=== PATIENT | male | born 1960 | race Caucasian/White ===

== ENCOUNTER 2025-02-04 17:35 | Emergency (ER) | payer OTHER ==
[~2025-02-04] VITALS: Ht 190.5 cm; Wt 104.0 kg
[2025-02-04] MEDS ORDERED: PRILOSEC OTC20 MG PO (17:48)
[2025-02-04] MEDS ORDERED: FLOMAX0.4 MG PO (17:48)
[2025-02-04] MEDS ORDERED: IBLOOD GLUCOSE TEST STRIP 1 EA TEST XX ONE (18:00)
[2025-02-04 18:03] LABS: BASOPHILS 0.6 % (0.2-1.2); EOSINOPHILS 1.5 % (0.8-7.0); LYMPHOCYTES 33.2 % (21.8-53.1); MCH 30.8 PG (25.7-32.2); MCHC 34.5 g/dL (32.3-36.5); MCV 89.2 fL (79.0-92.2); MONOCYTES 9.1 % (5.3-12.2); NEUTROPHILS 55.4 % (34.0-67.9); RBC 4.64 M/uL (4.63-6.08)
[2025-02-04 18:19] LABS: ALT (SGPT) 24.0 U/L (14-59); AST (SGOT) 20.0 U/L (15-37); GLOMERULAR FILTRATION RATE,EST 68.0 mL/min (>60); PROTEIN, TOTAL 6.6 g/dL (6.4-8.2); UREA NITROGEN 15.0 mg/dL (7-18)
--- NOTE | 2025-02-04 18:52 | EKG ---
[facility] [address] [facility] [place], [place] [address] Signed Sinus rhythm with 1st degree AV block Possible Inferior infarct , age undetermined Abnormal ECG No previous ECGs available Confirmed by Jagjit Teixeira DO ([id number]) on 02/04/2025 6:51:59 PM Electronically Signed By: JAGJIT TEIXEIRA DO 02/04/251851 PATIENT NAME: DANGJIN Electrocardiogram DATE OF : 60 PHYSICIAN: JAGJIT TEIXEIRA DO REPORT #: [id number] REPORT IS CONFIDENTIAL AND NOT TO BE RELEASED WITHOUT AUTHORIZATION
[2025-02-04 20:39] VITALS: BP 141/98
== END 2025-02-04 20:40 | disposition home or self-care (01) ==
LOC: ED 17:35
PROVIDERS: Emergency Medicine
DX: R55 Syncope and collapse (principal); Z79.899 Other long term (current) drug therapy
CPT/HCPCS: 36415; 80053; 83735; 84484; 85025; 93005; 93010; 93242; 93244; 99284; G0480